=== PATIENT | female | born 1935 | race Caucasian/White ===

== ENCOUNTER 2016-10-27 19:59 | Inpatient (IN) | payer OTHER ==
--- NOTE | ~2016-10-27 | IDS ---
Interim Discharge Summary [facility] [address] [place]. [address] NAME: PATO PRUETT : 33 STATUS : ADM IN PAT#: [id number] AGE: 81 ADM/REG DATE : 10/27/16 MR#: [id number] REPORT SERV DATE: 11/02/16 DICTATED BY: HUANG NICHOLAS DATE: 11/02/16 REPORT STATUS : Draft TRANSCRIBED BY: MODL DATE: 11/02/16 ADMISSION DATE: 10/27/2016 DISCHARGE DATE: CONSULTANTS: Dr. Dean Blevins, Neurology. PROBLEM LIST: 1. 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 2. Midline shift from right to left due to cerebral edema from stroke. 3. Atrial fibrillation with episodes of rapid ventricular response. 4. Escherichia coli urinary tract infection. 5. Chronic systolic congestive heart failure with left ventricular ejection fraction of 30% to 35%. 6. Hypertension. 7. Leukocytosis. 8. 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 9. Previous pyelonephritis with sepsis and stone in the left ureter with acute kidney injury in 2012. HISTORY: This patient was living independently, very active mentally and physically. On 10/26/2016, she had gone to town shopping with her daughter, was fully active and neurologically intact. On 10/27/2016, she was noted to be normal at 9:30 in the a.m. by phone conversation, then around 17:30 was found having difficulty communicating, not moving her left side, was brought to the emergency room at [facility]. CT of the brain revealed a large area of hypodensity involving the majority of the right temporoparietal and occipital lobe with diffuse effacement of the overlying sulci and partial effacement of right lateral ventricle and temporal horn of the right lateral ventricle, consistent with a large acute to subacute infarction of the right cerebral hemisphere. No hemorrhage was noted at that time. There was mild diffuse atrophy. The ER also at that time did a CT of the abdomen and pelvis showing large hiatal hernia, spinal dextroscoliosis of T12 through S1, small fat-containing umbilical hernia, and a lot of stool in the rectal vault. She was admitted to the critical care team, Neurology saw her. She did not receive tPA. Then, a followup CT on 10/28/2016 revealed stable changes with associated edema with no midline shift. A questionable 5 mm aneurysm at the right middle cerebral artery bifurcation. Followup CT brain on 10/29/2016 revealed mass effect with a few petechiae hemorrhages and a 5 mm shift from right to left. Dr. Blevins and I met with the patient and with the family and discussed our recommendation for her to go to [place] to have the neurosurgeons follow the patient for possible craniectomy and durectomy. Dr. Blevins called and spoke to the neurosurgery, they were willing to accept the patient. Family talked to the patient and each other, and decided they did not wish to have this aggressive move, they realized that it might mean the of the patient, they are quite reasonable, they asked logical questions, but they have elected to not have her go to [place] for this surgical intervention. Interim Discharge Summary [address] [place]. [address] NAME: PATO PRUETT : 33 STATUS : ADM IN PAT#: [id number] AGE: 81 ADM/REG DATE : 10/27/16 MR#: [id number] REPORT SERV DATE: 11/02/16 DICTATED BY: HUANG NICHOLAS DATE: 11/02/16 REPORT STATUS : Draft TRANSCRIBED BY: MODAlvaro DATE: 11/02/16 As a result of this, we have used therapeutic dehydration with hypertonic saline and mannitol to try to help save this patient's life. She has had progressive hypernatremia as we have dehydrated her, we start to add back some free water. Unfortunately, the CAT scans have continued to show worsening cerebral edema such that on 11/01/2016, the ublzu-wz-egax shift had increased to 9.[address] on 11/02/2016 is still pending at this time. The patient's family has her as a limited DNR, she can receive medications for hemodynamic deterioration or arrhythmias, but no other intervention. She did have an abnormal urinalysis suggesting urinary tract infection. She was initially getting some Rocephin and Levaquin. It turned out to be E coli. She is still on Levaquin at this point in time. She has had constipation. She has had enemas for this which have helped. She has dysphagia as a result of her stroke. Dr. Rea had seen her from GI in the past and Dr. Black covering for him has the patient tentatively set up for a PEG when she is felt to be reasonably safe to go through conscious sedation or deep sedation with anesthesia for the PEG procedure. We have not proceeded with that at this point in time. The patient has atrial fibrillation with rapid ventricular response. She is getting Cardizem infusion parenterally for this. She has chronic systolic congestive heart failure. Echocardiogram on 10/28/2016 showed left ventricular ejection fraction 30% to 35%, mild to moderate mitral regurgitation. ABBY/MIAH Huang Nicholas M.D. / [id number]
--- NOTE | ~2016-10-27 | HP ---
History And Physical [address] [place]. [address] NAME: PATO PRUETT : 33 STATUS : ADM IN PAT#: [id number] AGE: 81 ADM/REG DATE : 10/27/16 MR#: [id number] REPORT SERV DATE: 10/29/16 DICTATED BY: HUANG NICHOLAS DATE: 10/29/16 REPORT STATUS : Draft TRANSCRIBED BY: MODL DATE: 10/29/16 DATE OF ADMISSION: 10/27/2016 This is a transfer summary. CONSULTANTS: Dean Blevins MD, Neurology. PROBLEM LIST: 1. Acute right brain large middle cerebral artery stroke, likely embolic. 2. Midline shift from right to left due to acute right brain large middle cerebral artery stroke, likely embolic. 3. Atrial fibrillation status post rapid ventricular response. 4. Possible urinary tract infection versus asymptomatic bacteria. 5. Chronic systolic congestive heart failure with left ventricular ejection fraction 30% to 35%. 6. Hypertension. 7. Leukocytosis. 8. 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 9. Previous pyelonephritis with sepsis and left ureter stone, complicated by acute kidney injury, 2012. 10.Previous iron deficiency anemia and gastritis and rectal ulcers. 11.Constipation. HISTORY: This 81-year-old has been living independently and is very active both mentally and physically. On 10/26/2016, she had gone to town, been shopping with her daughter, was fully independent and normal neurologically according to what we can ask the family. On 10/27/2016, she was noted to be normal about 9:30 in the morning by phone conversation, then was seen around 1730 on that same day, was having difficulty communicating, found down, not moving her left side. She was brought to the emergency room at [facility]. CT of the brain was performed. The initial CT of the brain without contrast revealed large area of hypodensity involving the majority of the right temporoparietooccipital lobe with diffuse effacement of the overlying sulci and partial effacement of the right lateral ventricle and temporal horn of the right lateral ventricle consistent with a large acute to subacute infarction of the right cerebral hemisphere. No hemorrhagic changes. There is mild underlying diffuse cerebral atrophy. The ER had also done a CT of the chest and abdomen and pelvis. These were unremarkable other than a large hiatal hernia and some spinal dextroscoliosis of T12 through S1, and a small fat containing umbilical hernia, and she had a lot of stool in the rectal vault. She was admitted to the intensive care critical care team. Neurology saw her. Then she had a followup CT scan of the brain on 10/28/2016, which revealed stable changes with associated vasogenic edema with effacement of the right lateral ventricle. No significant midline shift. A questionable 5 mm aneurysm suspected at the right middle cerebral artery bifurcation. A CT scan of the brain today when I met her and ordered it without contrast reveals considerable increase in the mass effect related to the large right-sided stroke. A few petechiae hemorrhages are suspected without focal hematoma. There was a 5 mm midline shift from right to left and a History And Physical [address] [facility] [place]. [address] NAME: PATO PRUETT : 33 STATUS : ADM IN PAT#: [id number] AGE: 81 ADM/REG DATE : 10/27/16 MR#: [id number] REPORT SERV DATE: 10/29/16 DICTATED BY: HUANG NICHOLAS DATE: 10/29/16 REPORT STATUS : Draft TRANSCRIBED BY: MIAH DATE: 10/29/16 low-density now present at the right caudate nucleus consistent with an air additional area of infarction. I spoke with radiologist, Dr. Phillips about this. Other imaging, carotid ultrasound revealed category 1 or less disease in the carotids. Echocardiogram 10/28/2016, left atrial size 3.8 cm, left ventricular ejection fraction 30% to 35%, mild to moderate mitral regurgitation. CT of her cervical spine ordered by the ER had shown moderate degenerative disk disease at C3-C4 and C5-C6. No acute fracture. The patient was seen by me early this morning at 0805 and then I returned to see the patient after getting the CT of the brain and saw her at 1515. The patient each time appears somewhat drowsy with her eyes closed, head turn to the left, but when her name is called, she will slowly open her eyes, she will tell me her name. She followed simple verbal commands. I asked her to hold up her thumb like a hitchhiker, she did it. I asked her to hold up her right hand fingers like a P sign. She held up the right second and third fingers. She interacted occasionally, but slowly in conversation. She had dense hemiplegia on the left side. Positive Babinski on the left side, left-sided neglect. Left pupil 4 mm and reactive. Right pupil 3 mm and reactive. I spoke earlier this morning with one daughter, and this afternoon at 1515, I spoke with the son. We told him to talk with family about whether they were willing for us to contact Neurosurgery to have the patient evaluated at [place] for possible surgery to relieve the pressure in the brain if it deteriorated. They want a little time to think about it. We met back with them at 1700, they are still discussing it, but Dr. Blevins in the meantime has talked to Neurosurgery, and they have accepted the patient in transfer. The patient's head is being kept elevated, mannitol infusion is starting, serum osmolality ordered every 6 hours. The patient's family had placed her as a limited DNR that she could receive medications for hemodynamic deterioration or arrhythmias, but otherwise, no interventions. Family is again discussing right now about whether to agree to have her go to [place]. They realized that even if she goes to [place], she may not end up needing surgery. They also realized that if she does end up needing surgery, she still will probably have a very significant left- sided deficit with neglect and speech problems and probably need a feeding tube and long- term rehab. Another lesser issue was an abnormal urinalysis on 10/28/2016, with protein 100, nitrate positive. The initial urinalysis had trace leukocyte esterase, but after the catheter was in, there was greater than 182 white cells, and a few white cell clumps. The intensive care started her on Rocephin and Levaquin, I have simplified that to just the Rocephin. The daughter states the patient had no symptoms attributable to urinary tract on the day when they went shopping. The urine cultures growing greater than 100,000 E. coli. It is pansensitive. I spent 41 minutes today with the discharge planning and with the family. ABBY/MIAH Huang History And Physical [place] [address] [address] NAME: PATO PRUETT : 33 STATUS : ADM IN PAT#: [id number] AGE: 81 ADM/REG DATE : 10/27/16 MR#: [id number] REPORT SERV DATE: 10/29/16 DICTATED BY: HUANG NICHOLAS DATE: 10/29/16 REPORT STATUS : Draft TRANSCRIBED BY: MODL DATE: 10/29/16 Neil Nicholas M.D. / [id number] CC: MD Joseluis Lozano M.D. Ondrej J Lisy, M.D.
--- NOTE | ~2016-10-27 | DS ---
Discharge Summary [place] [address] [facility] [place]. [address] NAME: PATO PRUETT YASMINE : 33 STATUS : DIS IN PAT#: [id number] AGE: 81 ADM/REG DATE : 10/27/16 MR#: [id number] REPORT SERV DATE: 12/09/16 DICTATED BY: Roopa MORENO DATE: 12/09/16 REPORT STATUS : Draft TRANSCRIBED BY: MODL DATE: 12/09/16 ADMISSION DATE: 10/27/2016 DISCHARGE DATE: 11/08/2016 SUMMARY DATE OF : 11/07/2016 DIAGNOSES AT THE PATIENT'S DEMISE: 1. Large right middle cerebral artery stroke, embolic in nature. 2. Severe cerebral edema secondary to #1. 3. Chronic atrial fibrillation. 4. Escherichia coli urinary tract infection, status post treatment. 5. Chronic systolic heart failure. 6. Hypertension. CONSULTS: 1. Gastroenterology. 2. Neurology. PROCEDURES: None. BRIEF HOSPITAL COURSE: For details of earlier hospital stay, see interim summaries dictated by Dr. Nicholas, 08/25/2012, and by myself on 11/06/2016. The patient has continued to have clinical decline despite maximal medical efforts. As mentioned in previous interim summaries, the patient had been offered the opportunity to go to [facility] to seek neurosurgical intervention for her cerebral edema. However, the family was not interested in surgical treatment, wanted medical treatment only understanding the potential consequences. Despite maximal medical effort to control edema and treat her underlying medical issues, the patient continued to have a deteriorating course. At the request of the family, patient's code status was made DNR and her focus of her care was changed to comfort. The patient passed peacefully on 11/07/2016. The certificate was completed by myself at the time of the patient's demise. There was no autopsy requested. [facility] Roopa Moreno M.D. / [id number] CC: Discharge Summary [address] [place]. [address] NAME: PATO PURETT YASMINE : 33 STATUS : DIS IN PAT#: [id number] AGE: 81 ADM/REG DATE : 10/27/16 MR#: [id number] REPORT SERV DATE: 12/09/16 DICTATED BY: Roopa MORENO DATE: 12/09/16 REPORT STATUS : Draft TRANSCRIBED BY: MIAH DATE: 12/09/16 Finn Navarrete M.D.
--- NOTE | ~2016-10-27 | IDS ---
Interim Discharge Summary [facility] [address] [place]. [address] NAME: PATO PRUETT : 33 STATUS : ADM IN PAT#: [id number] AGE: 81 ADM/REG DATE : 10/27/16 MR#: [id number] REPORT SERV DATE: 11/06/16 DICTATED BY: Roopa MORENO DATE: 11/06/16 REPORT STATUS : Draft TRANSCRIBED BY: MODL DATE: 11/06/16 ADMISSION DATE: 10/27/2016 DISCHARGE DATE: INTERIM SUMMARY DATE: 11/06/2016. DIAGNOSES AT TIME OF INTERIM SUMMARY: 1. Large right MCA stroke, embolic. 2. Cerebral edema secondary to #1 .. 3. Chronic atrial fibrillation with controlled rate. 4. Escherichia coli urinary tract infection, status post treatment. 5. Chronic systolic heart failure, compensated. 6. Hypertension. CONSULTS: Gastroenterology. PROCEDURES: None. HOSPITAL COURSE: Starting 11/01/2016, the patient has remained clinically stable. Follow up CT scan that showed some decrease in the level of edema, but she remains with a 7 mm right- to-left shift. Plans were to place a PEG tube for ongoing nutrition, but after review with Anesthesia and Gastroenterology as well as detailed review with the family, decision was made to forego PEG tube until she had less swelling and the patient did have placement of a Dobbhoff tube without difficulty and started on Jevity 1.2 with a target goal of 40 mL an hour. The plans are to continue to monitor clinically and radiographically, and when she is more stable to ask Anesthesia and Gastroenterology to place a PEG tube likely first of the week for ongoing feedings. Ultimately, the plan will be to transition her to rehabilitation for ongoing evaluation and treatment. The patient had been previously on mannitol. This has been discontinued. She remains on aspirin therapy per her Dobbhoff tube as well as metoprolol down her Dobbhoff tube for control of her heart rate. The patient had a previous UTI, but has completed therapy for this. We continue to closely monitor her lab data. Again, the patient will be followed by another member of the hospitalist team starting 11/07/2016 with ongoing management from Gastroenterology the plan will be to re-evaluate her for possible PEG tube placement on 11/09/2016, with repeat imaging scheduled for 11/09/2016. If she is clinically stable with an improved CT scan, hopefully, we can transition her to PEG tube and then make more detailed plans for ongoing rehabilitation as she recovered from her stroke. Per family request, she is DNR/DNI. This is clearly demarcated on her medical record. KT/MIAH Roopa Moreno M.D. Interim Discharge Summary [address] [place]. [address] NAME: PATO PRUETT : 33 STATUS : ADM IN PAT#: [id number] AGE: 81 ADM/REG DATE : 10/27/16 MR#: [id number] REPORT SERV DATE: 11/06/16 DICTATED BY: Roopa MOERNO DATE: 11/06/16 REPORT STATUS : Draft TRANSCRIBED BY: MIAH DATE: 11/06/16 / [id number] CC: Finn Navarrete M.D.
--- NOTE | ~2016-10-27 | CN ---
Consultation Report [facility] [address] [place]. [address] NAME: PATO PRUETT : 33 STATUS : ADM IN PAT#: [id number] AGE: 81 ADM/REG DATE : 10/27/16 MR#: [id number] REPORT SERV DATE: 10/28/16 DICTATED BY: DATE: REPORT STATUS : Draft TRANSCRIBED BY: MODL DATE: 10/28/16 DATE OF CONSULTATION: 10/28/2016 REASON FOR CONSULT: Stroke. HISTORY OF PRESENT ILLNESS: This is an 81-year-old female who was otherwise noted to be normal, conversing on the phone at 0930 hours on 10/27/2016. The patient was subsequently found down still communicating, but weak, not moving the left side at 1730 hours on 10/27/2016. CT scan of the brain at the emergency department demonstrated right MCA distribution, stroke involving right parietotemporal as well as some right frontal area. According to the nursing staff, the patient is able to communicate some today, but was noted to have decreased movement in the left side. No other significant illness was noted. The patient was significantly noted to be in atrial fibrillation in the emergency department. PAST MEDICAL HISTORY: Significant for chronic back pain, atrial fibrillation, as well as recent history of urinary tract infection. MEDICATIONS: On admission, reported to take Aleve at home. ALLERGIES: ACCORDING TO MEDICAL RECORD, THE PATIENT WAS NOTED TO HAVE ALLERGY TO PENICILLIN, SULFA, AND TETRACYCLINE. SOCIAL HISTORY: Per medical record. No recent tobacco, alcohol, or recreational drug usage. FAMILY HISTORY: Significant for COPD as well as heart disease. REVIEW OF SYSTEMS: Unable to be obtained secondary to patient's current mental status. PHYSICAL EXAMINATION: VITAL SIGNS: The patient was noted to have vital signs with T-max of 99.2, heart rate of 54 to 104, respirations of 16 to 30, blood pressure of 115 to 158 over 56 to 90. GENERAL: The patient is well developed, well nourished, in no acute distress. CARDIOVASCULAR EXAMINATION: Irregularly irregular on evaluation. No carotid bruits were otherwise auscultated. PULMONARY EXAMINATION: Clear to auscultation bilaterally. NEUROLOGICAL EXAMINATION: The patient was alert x5. Verbally responsive, follows some simple commands at the time of evaluation. She is unable to answer orientation questions. Dysarthria was noted. Cranial nerves 2 through 12; pupils equal, round, and reactive to light. Right gaze preference was noted at the time of evaluation with the patient noted to have horizontal eye movement on oculocephalic maneuver. Left facial weakness was noted at the time of evaluation. Otherwise, the patient appears to perceive right-sided facial sensation. The patient has demonstrated some spontaneous movement in the right upper and right lower extremity as well as command following with the patient noted to have trace left upper extremity movement and no left lower extremity movement noted. Hyporeflexia in all Consultation Report [facility] [address] [place]. [address] NAME: PATO PRUETT : 33 STATUS : ADM IN PAT#: [id number] AGE: 81 ADM/REG DATE : 10/27/16 MR#: [id number] REPORT SERV DATE: 10/28/16 DICTATED BY: DATE: REPORT STATUS : Draft TRANSCRIBED BY: MODL DATE: 10/28/16 four extremity was noted. The patient does appear to have decreased sensation to noxious stimulation in the left upper and left lower extremity. Gait and cerebellar examination is unable to be evaluated. LABORATORY STUDIES: Demonstrated white blood cell count of 13.9, hemoglobin of 15.3, hematocrit of 45.5, platelet count of 259. Chemistry panel: Sodium 140, potassium 3.7, chloride 102, bicarb 26, BUN of 15, creatinine of 0.89, glucose 163, calcium of 9.0, magnesium 1.8. Serum cholesterol of 144, HDL of 84, LDL 49, triglyceride of 55. Hemoglobin A1c of 5.8. Urinalysis demonstrated large leukocyte esterase, positive nitrite. CT scan of her brain demonstrated hypoattenuation in the right MCA distribution involving the temporoparietal as well as some mild right frontal area involvement. Mild edema was noted. No hemorrhage was seen. IMPRESSION: 1. Right embolic stroke in the right MCA territory with the patient last noted to be normal at 0930 hours on 10/27/2016. NIH stroke scale of 21. We will obtain echo and carotid Doppler study. We will also repeat CT scan of the brain today, may require the CT scan of the brain to evaluate for cerebral edema. In addition, we will recommend PT/OT and speech therapy. 2. Atrial fibrillation. Anticoagulation when patient is stable. RECOMMENDATIONS: 1. PT/OT, speech therapy. 2. CT scan of the brain today. 3. Echo and carotid Doppler study. 4. Daily CT scan of the brain. 5. Anticoagulation when patient is clinically stable. [facility] Dean Blevins MD / [id number] CC: MD Joseluis Lozano M.D.
--- NOTE | ~2016-10-27 | CN ---
Consultation Report [address] [place]. [address] NAME: PATO PRUETT : 33 STATUS : ADM IN PAT#: [id number] AGE: 81 ADM/REG DATE : 10/27/16 MR#: [id number] REPORT SERV DATE: 11/02/16 DICTATED BY: DONNA FUENTES DATE: 10/30/16 REPORT STATUS : Draft TRANSCRIBED BY: MIAH DATE: 10/30/16 DATE OF CONSULTATION: 10/30/2016 HISTORY OF PRESENT ILLNESS: This is an 81-year-old white female, I am seeing for Dr. Facundo Rea, admitted with CVA, now on mannitol drips and saline for cerebral edema noted on CT. She has failed swallowing study and request was made for PEG placement on Wednesday. She has had atrial fib, now on treatment with rate control, also is on aspirin. She has a UTI, on antibiotics. She had a CT scan that showed a distended bladder. She had straight catheterization which relived her discomfort and also chronic stool, which is being addressed. Past history of hypertension, CHF, status post hysterectomy. Hemoglobin 14.8, white count 19,200, platelets 219,000, INR 1.1. PHYSICAL EXAMINATION: GENERAL: Elderly female, making some attempts to talk, moving right side only. HEENT: Anicteric. NECK: Negative. CHEST: Clear to percussion. HEART: Irregular rhythm. ABDOMEN: Soft. Minimal distention at present time. Bowel sounds present. Nontender at present time. EXTREMITIES/NEUROLOGIC: Pertinent for evidence of CVA with resolving left-sided weakness and paralysis. ASSESSMENT: 1. Status post cerebrovascular accident. 2. Failed swallowing study secondary to the cerebrovascular accident. 3. Urinary tract infection. 4. History of hypertension, congestive heart failure. 5. Atrial fib, on treatment. SUGGESTION: 1. We will schedule tentatively for PEG placement on Wednesday with Dr. Hughes. 2. We will follow with you. NATY/MIAH Donna Fuentes M.D. / [id number] CC: Karina Pritchett MD Consultation Report [address] [place]. [address] NAME: PATO PRUETT : 33 STATUS : ADM IN PAT#: [id number] AGE: 81 ADM/REG DATE : 10/27/16 MR#: [id number] REPORT SERV DATE: 11/02/16 DICTATED BY: DONNA FUENTES DATE: 10/30/16 REPORT STATUS : Draft TRANSCRIBED BY: MODL DATE: 10/30/16 Finn Prabhakar M.D.
--- NOTE | ~2016-10-27 | HP ---
History And Physical [id number] [place]. [address] NAME: PATO MCGREGOR : 31 STATUS : ADM IN [facility]#: [id number] AGE: 81 ADM/REG DATE : 10/27/16 MR#: [id number] REPORT SERV DATE: 10/28/16 DICTATED BY: KARINA PRITCHETT DATE: 10/28/16 REPORT STATUS : Draft TRANSCRIBED BY: MODL DATE: 10/28/16 DATE OF ADMISSION: 10/27/2016 REASON FOR ADMISSION: Large right temporal, parietal, occipital lobe acute to subacute infarct. CHIEF COMPLAINT: The patient is nonverbal, but is pointing to complaints or trying to answer questions. HISTORY OF PRESENT ILLNESS: Mrs. Mcgregor is an 81-year-old female with a past medical history of chronic back pain who had a UTI four years ago and had an atrial fibrillation at that time. She was on medications just for a couple of months according to the daughter, son, and granddaughter currently at the bedside in the emergency room. They say that she has done well since then, daughter call the patient today at 9:30 in the morning, the patient had no symptoms. She then called her at 4:30 as they were going to go out this evening, there was no answer, daughter proceeded to come to the house at 5:30 p.m. and at that time the patient was found down, still communicating but weak, not moving her left side and hence the patient presented to the hospital and was found to have a large right cerebral hemisphere stroke. She was also found to be in atrial fibrillation. Otherwise, the patient has no further complaints. PAST MEDICAL HISTORY: Chronic back pain, atrial fibrillation, and history of UTI. MEDICATIONS: Aleve. ALLERGIES: PENICILLIN, SULFA, AND TETRACYCLINE. SOCIAL HISTORY: The patient is currently independent, lives at home, has a great family at the bedside, she is a nondrinker and nonsmoker. No illicit drug use. FAMILY HISTORY: Family history of COPD and heart disease. REVIEW OF SYSTEMS: Unable to obtain full review of systems due to the patient's current medical status. PHYSICAL EXAMINATION: VITAL SIGNS: The patient is currently afebrile, heart rate around 105 and atrial fibrillation, blood pressure currently in the 140 systolic, respiratory rate 16, oxygen saturation 91% on room air on admission to the emergency room. GENERAL: The patient is looking towards her left, has a facial droop, can only lift her right shoulder, completely paralyzed on the left side, normal on the right. The patient has a distant voice in attempts to make conversation but is unable to. PULMONARY: Clear to auscultation bilaterally. CARDIAC: Irregular rate, tachycardia, no murmurs. ABDOMEN: Soft, nontender, and nondistended. EXTREMITIES: No lower extremity edema. Peripheral pulses in all extremities. History And Physical [address] [address] NAME: PATO MCGREGOR : 31 STATUS : ADM IN PAT#: [id number] AGE: 81 ADM/REG DATE : 10/27/16 MR#: [id number] REPORT SERV DATE: 10/28/16 DICTATED BY: KARINA PRITCHETT DATE: 10/28/16 REPORT STATUS : Draft TRANSCRIBED BY: MIAH DATE: 10/28/16 LABORATORY AND X-RAY DATA: BNP 743, urinalysis consistent with a mild leukocyte esterase and mild blood along with white blood cell count of 32 . White blood cell count on serum is 13.9 with neutrophilia. Myoglobin is 473, CPK 199, good kidney function, troponin 0.05. EKG: Findings of atrial fibrillation. Brain scan: As noted above, there is a large right-sided infarct. ASSESSMENT AND PLAN: Mrs. Mcgregor is an 81-year-old female with a past medical history noted above, who presents to the emergency room with a large stroke, Neurology has been called 1. Acute to subacute stroke, right hemisphere with left-sided paralysis, the patient is currently not a tPA candidate as we do not know the onset of symptoms, relative to age, and large stroke area. Currently, she does not have any headache or nausea, we will continue to monitor for signs of herniation. 2. Atrial fibrillation: At this moment in time, we will continue diltiazem drip, we will have Speech evaluate the patient to see if we can transition to an oral agent. 3. Therapy: At this moment in time, we will order PT, OT, Speech Evaluation, the patient is currently n.p.o. 4. Goals of care: The patient's daughter noticed that her mother has always been a do not resuscitate, no noninvasive mechanical ventilation, no intubation, the patient would be okay with medications to treat arrhythmias and hypotension. HFQ/MODL Karina Pritchett MD / [id number] CC: MD Joseluis Lozano M.D.
[2016-10-27 19:52] LABS: BASOPHILS 0.1 %; BASOPHILS ABSOLUTE 0.01 10/3/uL (0.0-0.16); EOSINOPHILS 0.1 %; EOSINOPHILS ABSOLUTE 0.01 10/3/uL (0.0-0.53); HEMATOCRIT 45.5 % (36.0-48.0); HEMOGLOBIN 15.3 g/dL (12.0-16.0); IMMATURE GRANULOCYTES 0.1 %; IMMATURE GRANULOCYTES ABSOLUTE 0.02 10/3/uL (0.0-0.11); LYMPHOCYTES 4.7 %; LYMPHOCYTES ABSOLUTE 0.66 10/3/uL (0.67-4.30); MEAN CORPUS HGB CONC 33.6 g/dL (32.0-36.0); MEAN CORPUSCULAR HEMOGLOB 28.4 pg (26.0-34.0); MEAN CORPUSCULAR VOLUME 84.4 fL (80-100); MEAN PLATELET VOLUME 9.9 fL (9.2-13.0); MONOCYTES 4.1 %; MONOCYTES ABSOLUTE 0.57 10/3/uL (0.21-1.20); NEUTROPHILS 90.9 %; NEUTROPHILS ABSOLUTE 12.64 10/3/uL (2.02-8.40); RBC DISTRIBUTION WIDTH 15.4 % (12.0-16.0); RED CELL COUNT 5.39 10/6/uL (4.0-5.6)
[2016-10-27 19:54] LABS: MANUAL DIFF NO %; PLATELET COUNT 259 10/3/uL (150-400); WHITE BLOOD CELLS 13.9 10/3/uL (4.5-10.5)
[2016-10-27 19:59] LABS: INTERNATIONAL NORMAL RATI 1.1 UNITS (-); PARTIAL THROMBO TIME 27.5 SEC (22.5-37.2); PROTIME (NOT ORD) 14.4 SEC (12.0-14.5)
[~2016-10-27 19:59] MED LIST: ALTA2.5 PO; ASAB PO; COREG12 PO; DSS PO; FERRETTS325 MG PO; L20 PO; MICRO-K10 MEQ PO; PACERONE200 MG PO; [UNRECOGNIZED DRUG - OTHER]
[2016-10-27 20:03] LABS: ASCORBIC ACID (UR NOT ORDER) 40 (NEG); BILIRUBIN, URINE NEGATIVE (NEG); ER URINALYSIS TAT 0 Hrs 07 Mins; KETONE, URINE 20 MG/DL (NEG); LEUKOCYTE ESTERASE(NOT OR TRACE (NEG); NITRITE (URINE) NEG (NEG); WBC (NOT ORDERED) (RFLEX) 32 (0-5)
[2016-10-27 20:17] LABS: BUN (BLOOD UREA NITROGEN) 15 MG/DL (6-23); CHEST PAIN PROFILE TAT 0 Hrs 29 Mins; CHLORIDE, SERUM 102 MMOL/L (96-112); CO2 (CARBON DIOXIDE) 26 MMOL/L (24-34); CREATININE 0.89 MG/DL (0.55-1.02); GFR AFRICAN AMERICAN 69 ML/MIN (>=60); GFR NON AFRICAN AMERICAN 60 ML/MIN (>=60); GLUCOSE, SERUM 163 MG/DL (60-99); MYOGLOBIN, SERUM 473 NG/ML (0-85); POTASSIUM, SERUM 3.7 MMOL/L (3.5-5.3); SODIUM, SERUM 140 MMOL/L (135-148); TROPONIN I 0.05 NG/ML (<0.05)
[2016-10-27] MEDS ORDERED: ASSORTED VITAMINS (21:01)
[2016-10-27 22:37] LABS: CPK 199 U/L (0-200)
[2016-10-28 04:37] LABS: CHOL/HDL RATIO(NOT ORDER) 1.7 (0-5)
[2016-10-28 06:13] LABS: ASCORBIC ACID (UR NOT ORDER) 40 (NEG); BILIRUBIN, URINE NEGATIVE (NEG); KETONE, URINE 20 MG/DL (NEG); LEUKOCYTE ESTERASE(NOT OR LARGE (NEG)
[2016-10-28 06:14] LABS: WBC (NOT ORDERED) (RFLEX) > 182 (0-5)
[2016-10-29 06:18] LABS: BASOPHILS 0.1 %; BASOPHILS ABSOLUTE 0.02 10/3/uL (0.0-0.16); EOSINOPHILS 0 %; HEMATOCRIT 44.1 % (36.0-48.0); HEMOGLOBIN 14.8 g/dL (12.0-16.0); IMMATURE GRANULOCYTES 0.3 %; IMMATURE GRANULOCYTES ABSOLUTE 0.06 10/3/uL (0.0-0.11); LYMPHOCYTES 6.8 %; MANUAL DIFF NO %; MEAN CORPUS HGB CONC 33.6 g/dL (32.0-36.0); MEAN CORPUSCULAR VOLUME 86.3 fL (80-100); MEAN PLATELET VOLUME 9.7 fL (9.2-13.0); MONOCYTES 7.9 %; MONOCYTES ABSOLUTE 1.52 10/3/uL (0.21-1.20); NEUTROPHILS 84.9 %; NEUTROPHILS ABSOLUTE 16.32 10/3/uL (2.02-8.40); PLATELET COUNT 219 10/3/uL (150-400); RED CELL COUNT 5.11 10/6/uL (4.0-5.6); WHITE BLOOD CELLS 19.2 10/3/uL (4.5-10.5)
[2016-10-29 08:52] LABS: CALCIUM, SERUM 8.9 MG/DL (8.5-10.4); CHLORIDE, SERUM 108 MMOL/L (96-112); CO2 (CARBON DIOXIDE) 24 MMOL/L (24-34); CREATININE 0.86 MG/DL (0.55-1.02); GFR AFRICAN AMERICAN 72 ML/MIN (>=60); GFR NON AFRICAN AMERICAN 62 ML/MIN (>=60); POTASSIUM, SERUM 3.8 MMOL/L (3.5-5.3); SODIUM, SERUM 143 MMOL/L (135-148)
[2016-10-29 08:54] LABS: BUN (BLOOD UREA NITROGEN) 19 MG/DL (6-23); GLUCOSE, SERUM 89 MG/DL (60-99)
[2016-10-29 09:44] LABS: PROCALCITONIN <0.05 ng/mL (<0.5)
[2016-10-29 13:37] LABS: A/G RATIO 0.7 (0.7-1.9); ALBUMIN 2.6 G/DL (3.5-5.0); ALKALINE PHOSPHATASE 66 U/L (45-117); BUN (BLOOD UREA NITROGEN) 18 MG/DL (6-23); CALCIUM, SERUM 8.7 MG/DL (8.5-10.4); CHLORIDE, SERUM 108 MMOL/L (96-112); CO2 (CARBON DIOXIDE) 24 MMOL/L (24-34); CREATININE 0.77 MG/DL (0.55-1.02); GFR AFRICAN AMERICAN 83 ML/MIN (>=60); GFR NON AFRICAN AMERICAN 71 ML/MIN (>=60); GLUCOSE, SERUM 94 MG/DL (60-99); POTASSIUM, SERUM 3.7 MMOL/L (3.5-5.3); SGOT(AST) 50 U/L (5-40); SGPT(ALT) 25 U/L (5-65); SODIUM, SERUM 143 MMOL/L (135-148); TOTAL BILIRUBIN 0.9 MG/DL (0-1.2); TOTAL PROTEIN 6.6 G/DL (6.0-8.5)
[2016-10-30 18:32] LABS: BASOPHILS 0.1 %; BASOPHILS ABSOLUTE 0.02 10/3/uL (0.0-0.16); EOSINOPHILS 0 %; HEMATOCRIT 43.9 % (36.0-48.0); HEMOGLOBIN 14.7 g/dL (12.0-16.0); IMMATURE GRANULOCYTES 0.2 %; IMMATURE GRANULOCYTES ABSOLUTE 0.04 10/3/uL (0.0-0.11); LYMPHOCYTES 5.9 %; LYMPHOCYTES ABSOLUTE 0.96 10/3/uL (0.67-4.30); MEAN CORPUS HGB CONC 33.5 g/dL (32.0-36.0); MEAN CORPUSCULAR HEMOGLOB 29.1 pg (26.0-34.0); MEAN CORPUSCULAR VOLUME 86.9 fL (80-100); MEAN PLATELET VOLUME 10.5 fL (9.2-13.0); MONOCYTES 7.8 %; MONOCYTES ABSOLUTE 1.26 10/3/uL (0.21-1.20); PLATELET COUNT 219 10/3/uL (150-400); RBC DISTRIBUTION WIDTH 16.1 % (12.0-16.0); RED CELL COUNT 5.05 10/6/uL (4.0-5.6); WHITE BLOOD CELLS 16.2 10/3/uL (4.5-10.5)
[2016-10-30 18:40] LABS: MANUAL DIFF NO %
[2016-10-30 18:44] LABS: BUN (BLOOD UREA NITROGEN) 18 MG/DL (6-23); CALCIUM, SERUM 8.5 MG/DL (8.5-10.4); CHLORIDE, SERUM 115 MMOL/L (96-112); CO2 (CARBON DIOXIDE) 25 MMOL/L (24-34); CREATININE 0.67 MG/DL (0.55-1.02); GFR AFRICAN AMERICAN 94 ML/MIN (>=60); GFR NON AFRICAN AMERICAN 81 ML/MIN (>=60); GLUCOSE, SERUM 91 MG/DL (60-99); POTASSIUM, SERUM 3.3 MMOL/L (3.5-5.3)
[2016-10-30 18:45] LABS: SODIUM, SERUM 151 MMOL/L (135-148)
[2016-10-31 01:26] LABS: BUN (BLOOD UREA NITROGEN) 18 MG/DL (6-23); CALCIUM, SERUM 9.1 MG/DL (8.5-10.4); CHLORIDE, SERUM 113 MMOL/L (96-112); CO2 (CARBON DIOXIDE) 27 MMOL/L (24-34); CREATININE 0.66 MG/DL (0.55-1.02); GFR AFRICAN AMERICAN 95 ML/MIN (>=60); GFR NON AFRICAN AMERICAN 82 ML/MIN (>=60); GLUCOSE, SERUM 91 MG/DL (60-99); SODIUM, SERUM 151 MMOL/L (135-148)
[2016-10-31 09:47] LABS: BASOPHILS 0.1 %; BASOPHILS ABSOLUTE 0.02 10/3/uL (0.0-0.16); EOSINOPHILS 0 %; HEMATOCRIT 47.8 % (36.0-48.0); HEMOGLOBIN 16.3 g/dL (12.0-16.0); IMMATURE GRANULOCYTES 0.2 %; IMMATURE GRANULOCYTES ABSOLUTE 0.03 10/3/uL (0.0-0.11); LYMPHOCYTES ABSOLUTE 1.13 10/3/uL (0.67-4.30); MEAN CORPUS HGB CONC 34.1 g/dL (32.0-36.0); MEAN CORPUSCULAR HEMOGLOB 29.3 pg (26.0-34.0); MEAN CORPUSCULAR VOLUME 85.8 fL (80-100); MEAN PLATELET VOLUME 10.3 fL (9.2-13.0); MONOCYTES 7.6 %; MONOCYTES ABSOLUTE 1.23 10/3/uL (0.21-1.20); NEUTROPHILS 85.1 %; NEUTROPHILS ABSOLUTE 13.69 10/3/uL (2.02-8.40); PLATELET COUNT 230 10/3/uL (150-400); RBC DISTRIBUTION WIDTH 16.2 % (12.0-16.0); RED CELL COUNT 5.57 10/6/uL (4.0-5.6); WHITE BLOOD CELLS 16.1 10/3/uL (4.5-10.5)
[2016-10-31 09:49] LABS: MANUAL DIFF NO %
[2016-10-31 10:01] LABS: A/G RATIO 0.6 (0.7-1.9); ALBUMIN 2.6 G/DL (3.5-5.0); BUN (BLOOD UREA NITROGEN) 19 MG/DL (6-23); CALCIUM, SERUM 9.2 MG/DL (8.5-10.4); CHLORIDE, SERUM 118 MMOL/L (96-112); CO2 (CARBON DIOXIDE) 24 MMOL/L (24-34); CREATININE 0.68 MG/DL (0.55-1.02); GFR AFRICAN AMERICAN 94 ML/MIN (>=60); GFR NON AFRICAN AMERICAN 81 ML/MIN (>=60); GLOBULIN 4.4 G/DL (2.5-4.1); GLUCOSE, SERUM 94 MG/DL (60-99); POTASSIUM, SERUM 3.3 MMOL/L (3.5-5.3); SGOT(AST) 36 U/L (5-40); SGPT(ALT) 28 U/L (5-65); SODIUM, SERUM 152 MMOL/L (135-148)
[2016-10-31 10:02] LABS: ALKALINE PHOSPHATASE 82 U/L (45-117)
[2016-10-31 16:43] LABS: BUN (BLOOD UREA NITROGEN) 17 MG/DL (6-23); CALCIUM, SERUM 9.5 MG/DL (8.5-10.4); CHLORIDE, SERUM 114 MMOL/L (96-112); CO2 (CARBON DIOXIDE) 24 MMOL/L (24-34); CREATININE 0.63 MG/DL (0.55-1.02); GFR AFRICAN AMERICAN 96 ML/MIN (>=60); GFR NON AFRICAN AMERICAN 83 ML/MIN (>=60); GLUCOSE, SERUM 91 MG/DL (60-99); POTASSIUM, SERUM 3.5 MMOL/L (3.5-5.3); SODIUM, SERUM 150 MMOL/L (135-148)
[2016-11-01 01:23] LABS: BUN (BLOOD UREA NITROGEN) 19 MG/DL (6-23); CALCIUM, SERUM 9.5 MG/DL (8.5-10.4); CHLORIDE, SERUM 117 MMOL/L (96-112); CO2 (CARBON DIOXIDE) 24 MMOL/L (24-34); CREATININE 0.72 MG/DL (0.55-1.02); GFR AFRICAN AMERICAN 90 ML/MIN (>=60); GFR NON AFRICAN AMERICAN 77 ML/MIN (>=60); GLUCOSE, SERUM 107 MG/DL (60-99); POTASSIUM, SERUM 3.6 MMOL/L (3.5-5.3); SODIUM, SERUM 153 MMOL/L (135-148)
[2016-11-01 08:35] LABS: BASOPHILS 0.1 %; BASOPHILS ABSOLUTE 0.02 10/3/uL (0.0-0.16); EOSINOPHILS 0.1 %; EOSINOPHILS ABSOLUTE 0.02 10/3/uL (0.0-0.53); HEMATOCRIT 49.9 % (36.0-48.0); HEMOGLOBIN 16.6 g/dL (12.0-16.0); IMMATURE GRANULOCYTES 0.3 %; IMMATURE GRANULOCYTES ABSOLUTE 0.04 10/3/uL (0.0-0.11); LYMPHOCYTES 11.1 %; LYMPHOCYTES ABSOLUTE 1.66 10/3/uL (0.67-4.30); MEAN CORPUS HGB CONC 33.3 g/dL (32.0-36.0); MEAN CORPUSCULAR HEMOGLOB 28.7 pg (26.0-34.0); MEAN CORPUSCULAR VOLUME 86.3 fL (80-100); MONOCYTES 8.6 %; MONOCYTES ABSOLUTE 1.29 10/3/uL (0.21-1.20); NEUTROPHILS 79.8 %; NEUTROPHILS ABSOLUTE 11.93 10/3/uL (2.02-8.40); PLATELET COUNT 256 10/3/uL (150-400); RBC DISTRIBUTION WIDTH 16.7 % (12.0-16.0); RED CELL COUNT 5.78 10/6/uL (4.0-5.6)
[2016-11-01 08:37] LABS: MANUAL DIFF NO %
[2016-11-01 08:52] LABS: A/G RATIO 0.7 (0.7-1.9); ALBUMIN 2.8 G/DL (3.5-5.0); ALKALINE PHOSPHATASE 86 U/L (45-117); BUN (BLOOD UREA NITROGEN) 20 MG/DL (6-23); CALCIUM, SERUM 9.7 MG/DL (8.5-10.4); CHLORIDE, SERUM 118 MMOL/L (96-112); CO2 (CARBON DIOXIDE) 25 MMOL/L (24-34); CREATININE 0.73 MG/DL (0.55-1.02); GFR AFRICAN AMERICAN 88 ML/MIN (>=60); GFR NON AFRICAN AMERICAN 76 ML/MIN (>=60); GLOBULIN 4.3 G/DL (2.5-4.1); GLUCOSE, SERUM 97 MG/DL (60-99); POTASSIUM, SERUM 3.8 MMOL/L (3.5-5.3); SGOT(AST) 28 U/L (5-40); SGPT(ALT) 27 U/L (5-65); SODIUM, SERUM 153 MMOL/L (135-148); TOTAL BILIRUBIN 0.8 MG/DL (0-1.2); TOTAL PROTEIN 7.1 G/DL (6.0-8.5)
[2016-11-02 06:09] LABS: BASOPHILS 0.5 %; BASOPHILS ABSOLUTE 0.06 10/3/uL (0.0-0.16); BUN (BLOOD UREA NITROGEN) 19 MG/DL (6-23); CHLORIDE, SERUM 118 MMOL/L (96-112); CO2 (CARBON DIOXIDE) 26 MMOL/L (24-34); CREATININE 0.78 MG/DL (0.55-1.02); EOSINOPHILS 0.5 %; EOSINOPHILS ABSOLUTE 0.06 10/3/uL (0.0-0.53); GFR AFRICAN AMERICAN 81 ML/MIN (>=60); GFR NON AFRICAN AMERICAN 70 ML/MIN (>=60); GLUCOSE, SERUM 98 MG/DL (60-99); HEMOGLOBIN 18.1 g/dL (12.0-16.0); IMMATURE GRANULOCYTES 0.3 %; IMMATURE GRANULOCYTES ABSOLUTE 0.04 10/3/uL (0.0-0.11); LYMPHOCYTES 10.5 %; LYMPHOCYTES ABSOLUTE 1.33 10/3/uL (0.67-4.30); MANUAL DIFF NO %; MEAN CORPUS HGB CONC 32.9 g/dL (32.0-36.0); MEAN CORPUSCULAR HEMOGLOB 29.6 pg (26.0-34.0); MEAN PLATELET VOLUME 10.6 fL (9.2-13.0); MONOCYTES ABSOLUTE 1.27 10/3/uL (0.21-1.20); NEUTROPHILS 78.2 %; NEUTROPHILS ABSOLUTE 9.95 10/3/uL (2.02-8.40); PLATELET COUNT 247 10/3/uL (150-400); POTASSIUM, SERUM 3.7 MMOL/L (3.5-5.3); RBC DISTRIBUTION WIDTH 16.8 % (12.0-16.0); RED CELL COUNT 6.11 10/6/uL (4.0-5.6); WHITE BLOOD CELLS 12.7 10/3/uL (4.5-10.5)
[2016-11-02 06:10] LABS: SODIUM, SERUM 156 MMOL/L (135-148)
[2016-11-02 12:06] LABS: BUN (BLOOD UREA NITROGEN) 20 MG/DL (6-23); CALCIUM, SERUM 9.8 MG/DL (8.5-10.4); CHLORIDE, SERUM 119 MMOL/L (96-112); CO2 (CARBON DIOXIDE) 26 MMOL/L (24-34); CREATININE 0.66 MG/DL (0.55-1.02); GFR AFRICAN AMERICAN 95 ML/MIN (>=60); GFR NON AFRICAN AMERICAN 82 ML/MIN (>=60); GLUCOSE, SERUM 92 MG/DL (60-99); POTASSIUM, SERUM 4.2 MMOL/L (3.5-5.3); SODIUM, SERUM 156 MMOL/L (135-148)
[2016-11-03 04:41] LABS: BASOPHILS 0.3 %; BASOPHILS ABSOLUTE 0.04 10/3/uL (0.0-0.16); EOSINOPHILS 0.8 %; EOSINOPHILS ABSOLUTE 0.11 10/3/uL (0.0-0.53); HEMATOCRIT 53.9 % (36.0-48.0); HEMOGLOBIN 17.6 g/dL (12.0-16.0); IMMATURE GRANULOCYTES 0.5 %; IMMATURE GRANULOCYTES ABSOLUTE 0.07 10/3/uL (0.0-0.11); LYMPHOCYTES 12.6 %; LYMPHOCYTES ABSOLUTE 1.85 10/3/uL (0.67-4.30); MANUAL DIFF NO %; MEAN CORPUS HGB CONC 32.7 g/dL (32.0-36.0); MEAN CORPUSCULAR HEMOGLOB 29.6 pg (26.0-34.0); MEAN CORPUSCULAR VOLUME 90.7 fL (80-100); MEAN PLATELET VOLUME 10.1 fL (9.2-13.0); MONOCYTES 8.7 %; MONOCYTES ABSOLUTE 1.28 10/3/uL (0.21-1.20); NEUTROPHILS 77.1 %; NEUTROPHILS ABSOLUTE 11.29 10/3/uL (2.02-8.40); PLATELET COUNT 210 10/3/uL (150-400); RBC DISTRIBUTION WIDTH 16.4 % (12.0-16.0); RED CELL COUNT 5.94 10/6/uL (4.0-5.6); WHITE BLOOD CELLS 14.6 10/3/uL (4.5-10.5)
[2016-11-03 04:51] LABS: BUN (BLOOD UREA NITROGEN) 23 MG/DL (6-23); CALCIUM, SERUM 9.3 MG/DL (8.5-10.4); CHLORIDE, SERUM 118 MMOL/L (96-112); CO2 (CARBON DIOXIDE) 24 MMOL/L (24-34); CREATININE 0.62 MG/DL (0.55-1.02); GFR AFRICAN AMERICAN 97 ML/MIN (>=60); GFR NON AFRICAN AMERICAN 83 ML/MIN (>=60); GLUCOSE, SERUM 82 MG/DL (60-99); POTASSIUM, SERUM 4.1 MMOL/L (3.5-5.3); SODIUM, SERUM 153 MMOL/L (135-148)
[2016-11-04 04:44] LABS: BASOPHILS 0.2 %; BASOPHILS ABSOLUTE 0.03 10/3/uL (0.0-0.16); EOSINOPHILS 0.5 %; EOSINOPHILS ABSOLUTE 0.08 10/3/uL (0.0-0.53); HEMATOCRIT 52.8 % (36.0-48.0); HEMOGLOBIN 17.2 g/dL (12.0-16.0); IMMATURE GRANULOCYTES 0.5 %; IMMATURE GRANULOCYTES ABSOLUTE 0.07 10/3/uL (0.0-0.11); LYMPHOCYTES 13.3 %; LYMPHOCYTES ABSOLUTE 1.99 10/3/uL (0.67-4.30); MEAN CORPUS HGB CONC 32.6 g/dL (32.0-36.0); MEAN CORPUSCULAR VOLUME 88.9 fL (80-100); MEAN PLATELET VOLUME 9.9 fL (9.2-13.0); MONOCYTES 7.9 %; MONOCYTES ABSOLUTE 1.19 10/3/uL (0.21-1.20); NEUTROPHILS 77.6 %; NEUTROPHILS ABSOLUTE 11.64 10/3/uL (2.02-8.40); PLATELET COUNT 228 10/3/uL (150-400); RED CELL COUNT 5.94 10/6/uL (4.0-5.6)
[2016-11-04 04:48] LABS: MANUAL DIFF NO %
[2016-11-04 04:52] LABS: BUN (BLOOD UREA NITROGEN) 22 MG/DL (6-23); CALCIUM, SERUM 8.8 MG/DL (8.5-10.4); CHLORIDE, SERUM 112 MMOL/L (96-112); CO2 (CARBON DIOXIDE) 25 MMOL/L (24-34); CREATININE 0.64 MG/DL (0.55-1.02); GFR AFRICAN AMERICAN 96 ML/MIN (>=60); GFR NON AFRICAN AMERICAN 83 ML/MIN (>=60); GLUCOSE, SERUM 82 MG/DL (60-99); POTASSIUM, SERUM 4.1 MMOL/L (3.5-5.3); SODIUM, SERUM 147 MMOL/L (135-148)
[2016-11-05 04:24] LABS: BASOPHILS 0.2 %; BASOPHILS ABSOLUTE 0.03 10/3/uL (0.0-0.16); EOSINOPHILS 0.4 %; EOSINOPHILS ABSOLUTE 0.06 10/3/uL (0.0-0.53); HEMATOCRIT 48.4 % (36.0-48.0); HEMOGLOBIN 15.8 g/dL (12.0-16.0); IMMATURE GRANULOCYTES 0.6 %; LYMPHOCYTES 12.5 %; LYMPHOCYTES ABSOLUTE 1.94 10/3/uL (0.67-4.30); MEAN CORPUS HGB CONC 32.6 g/dL (32.0-36.0); MEAN CORPUSCULAR HEMOGLOB 28.4 pg (26.0-34.0); MEAN CORPUSCULAR VOLUME 87.1 fL (80-100); MEAN PLATELET VOLUME 10.2 fL (9.2-13.0); MONOCYTES 11.7 %; MONOCYTES ABSOLUTE 1.82 10/3/uL (0.21-1.20); NEUTROPHILS 74.6 %; NEUTROPHILS ABSOLUTE 11.54 10/3/uL (2.02-8.40); PLATELET COUNT 212 10/3/uL (150-400); RBC DISTRIBUTION WIDTH 15.8 % (12.0-16.0); RED CELL COUNT 5.56 10/6/uL (4.0-5.6); WHITE BLOOD CELLS 15.5 10/3/uL (4.5-10.5)
[2016-11-05 04:25] LABS: MANUAL DIFF NO %
[2016-11-05 04:44] LABS: BUN (BLOOD UREA NITROGEN) 25 MG/DL (6-23); CALCIUM, SERUM 8.5 MG/DL (8.5-10.4); CHLORIDE, SERUM 112 MMOL/L (96-112); CO2 (CARBON DIOXIDE) 24 MMOL/L (24-34); CREATININE 0.75 MG/DL (0.55-1.02); GFR AFRICAN AMERICAN 85 ML/MIN (>=60); GFR NON AFRICAN AMERICAN 74 ML/MIN (>=60); POTASSIUM, SERUM 4.2 MMOL/L (3.5-5.3); SODIUM, SERUM 144 MMOL/L (135-148)
[2016-11-05 04:46] LABS: GLUCOSE, SERUM 103 MG/DL (60-99)
[2016-11-06 04:43] LABS: BASOPHILS 0.2 %; BASOPHILS ABSOLUTE 0.03 10/3/uL (0.0-0.16); EOSINOPHILS 0.9 %; EOSINOPHILS ABSOLUTE 0.11 10/3/uL (0.0-0.53); HEMATOCRIT 47.6 % (36.0-48.0); HEMOGLOBIN 16.2 g/dL (12.0-16.0); IMMATURE GRANULOCYTES 0.6 %; IMMATURE GRANULOCYTES ABSOLUTE 0.08 10/3/uL (0.0-0.11); LYMPHOCYTES 15.2 %; LYMPHOCYTES ABSOLUTE 1.96 10/3/uL (0.67-4.30); MEAN CORPUSCULAR HEMOGLOB 29.3 pg (26.0-34.0); MEAN CORPUSCULAR VOLUME 86.2 fL (80-100); MEAN PLATELET VOLUME 9.9 fL (9.2-13.0); MONOCYTES 12.5 %; MONOCYTES ABSOLUTE 1.61 10/3/uL (0.21-1.20); NEUTROPHILS 70.6 %; NEUTROPHILS ABSOLUTE 9.08 10/3/uL (2.02-8.40); PLATELET COUNT 237 10/3/uL (150-400); RBC DISTRIBUTION WIDTH 15.5 % (12.0-16.0); RED CELL COUNT 5.52 10/6/uL (4.0-5.6); WHITE BLOOD CELLS 12.9 10/3/uL (4.5-10.5)
[2016-11-06 04:46] LABS: MANUAL DIFF NO %
[2016-11-06 04:54] LABS: CALCIUM, SERUM 8.5 MG/DL (8.5-10.4); CHLORIDE, SERUM 108 MMOL/L (96-112); CO2 (CARBON DIOXIDE) 23 MMOL/L (24-34); CREATININE 0.67 MG/DL (0.55-1.02); GFR AFRICAN AMERICAN 94 ML/MIN (>=60); GFR NON AFRICAN AMERICAN 81 ML/MIN (>=60); POTASSIUM, SERUM 4.2 MMOL/L (3.5-5.3); SODIUM, SERUM 141 MMOL/L (135-148)
[2016-11-06 05:02] LABS: BUN (BLOOD UREA NITROGEN) 21 MG/DL (6-23); GLUCOSE, SERUM 146 MG/DL (60-99)
[2016-11-07 05:58] LABS: CALCIUM, SERUM 8.7 MG/DL (8.5-10.4); CHLORIDE, SERUM 104 MMOL/L (96-112); CO2 (CARBON DIOXIDE) 24 MMOL/L (24-34); CREATININE 0.87 MG/DL (0.55-1.02); GFR AFRICAN AMERICAN 71 ML/MIN (>=60); GFR NON AFRICAN AMERICAN 62 ML/MIN (>=60); GLUCOSE, SERUM 122 MG/DL (60-99); POTASSIUM, SERUM 4.1 MMOL/L (3.5-5.3); SODIUM, SERUM 140 MMOL/L (135-148)
[2016-11-07 05:59] LABS: BUN (BLOOD UREA NITROGEN) 25 MG/DL (6-23)
[2016-11-07 06:14] LABS: HEMATOCRIT 51.5 % (36.0-48.0); HEMOGLOBIN 17.9 g/dL (12.0-16.0); MEAN CORPUS HGB CONC 34.8 g/dL (32.0-36.0); MEAN CORPUSCULAR HEMOGLOB 29.9 pg (26.0-34.0); MEAN PLATELET VOLUME 9.8 fL (9.2-13.0); PLATELET COUNT 258 10/3/uL (150-400); RBC DISTRIBUTION WIDTH 15.4 % (12.0-16.0); RED CELL COUNT 5.99 10/6/uL (4.0-5.6)
[2016-11-07 06:15] LABS: WHITE BLOOD CELLS 30.2 10/3/uL (4.5-10.5)
[2016-11-07 06:16] LABS: MANUAL DIFF YES %
[2016-11-07 06:36] LABS: BAND NEUTROPHILS 12 %; LYMPHOCYTES 4 %; LYMPHOCYTES ABSOLUTE (CALC) 1.21 10/3/uL (0.67-4.30); MONOCYTES 8 %; MONOCYTES ABSOLUTE (CALC) 2.42 10/3/uL (0.21-1.20); NEUTROPHILS ABSOLUTE (CALC) 26.58 10/3/uL (2.02-8.40); PLATELET ESTIMATE ADQ (ADEQUATE); RBC MORPHOLOGY NORM (NORMAL); SEGMENTED NEUTROPHIL (0) 76 %; TOTAL NUCLEATED CELLS 100
[2016-11-07 12:08] LABS: PROCALCITONIN 0.31 ng/mL (<0.5)
== END 2016-11-08 05:26 | disposition expired | DRG 64 ==
LOC: ER 19:59 → CVICU 23:27 → 1SO 10-28 17:12 → IMCU 10-31 02:27
PROVIDERS: Emergency Medicine; Hospitalist; Internal Medicine; Internal Medicine Critical Care Medicine; Psychiatry & Neurology Neurology
PROC: 02HV33Z Insertion of Infusion Device into Superior Vena Cava, Percutaneous Approach (ICD-10-PCS; principal; 2016-10-30)
PROC: 4A02X4A Measurement of Cardiac Electrical Activity, Guidance, External Approach (ICD-10-PCS; 2016-10-30)
DX: I63.9 Cerebral infarction, unspecified (principal); G93.6 Cerebral edema; J96.01 Acute respiratory failure with hypoxia; J69.0 Pneumonitis due to inhalation of food and vomit; E87.0 Hyperosmolality and hypernatremia; E43 Unspecified severe protein-calorie malnutrition; I11.0 Hypertensive heart disease with heart failure; I50.22 Chronic systolic (congestive) heart failure; I48.2 Chronic atrial fibrillation; G81.94 Hemiplegia, unspecified affecting left nondominant side; N39.0 Urinary tract infection, site not specified; E86.0 Dehydration; G89.29 Other chronic pain; Z87.440 Personal history of urinary (tract) infections; Z88.0 Allergy status to penicillin; Z88.2 Allergy status to sulfonamides; Z88.1 Allergy status to other antibiotic agents; B96.20 Unspecified Escherichia coli [E. coli] as the cause of diseases classified elsewhere; E87.6 Hypokalemia; K59.8 Other specified functional intestinal disorders; Z68.23 Body mass index [BMI] 23.0-23.9, adult
CPT/HCPCS: 36569; 70450; 70470; 70486; 71010; 71250; 72125; 73030-LT; 74000; 74176; 80048; 80053; 80061; 81001; 82550; 82962; 83036; 83735; 83874; 83880; 83930; 84145; 84295; 84443; 84484; 85025; 85610; 85730; 87077; 87086; 87186; 87641; 92523-GN; 92610-GN; 93005; 93306; 93880; 96365; 97163-GP; 97166-GO; 97530-GP; 99291; 99292; A9270-GY; C1751; G8978-CN-GP; G8979-CL-GP; J0360; J0692; J1956; J2405; J3480; Q9967